=== PATIENT | female | born 1980 | race Two or more races ===

== ENCOUNTER 2022-11-29 15:31 | Emergency (ER) | payer BC ==
[~2022-11-29] VITALS: Ht 154.9 cm; Wt 70.1 kg
[2022-11-29 16:33] VITALS: BP 158/92
[2022-11-29] MEDS ORDERED: NAPR-746 PO (17:43)
== END 2022-11-29 17:55 | disposition home or self-care (01) ==
LOC: ER 15:31
DX: S00.83XA Contusion of other part of head, initial encounter (principal); W22.8XXA Striking against or struck by other objects, initial encounter; Y93.E9 Activity, other interior property and clothing maintenance; Y92.89 Other specified places as the place of occurrence of the external cause; Y99.8 Other external cause status
CPT/HCPCS: 70450

== ENCOUNTER 2024-12-20 08:26 | Emergency (ER) | payer BC ==
[~2024-12-20] VITALS: Ht 154.9 cm; Wt 73.8 kg
[~2024-12-20 08:26] MED LIST: NAPR-746 PO
--- NOTE | 2024-12-20 08:53 | ED.PDOC ---
History of Present Illness HPI Comments 44-year-old female with a history of hypertension, and diabetes presents to the ED with a chief complaint of posterior neck pain with associated right shoulder radiation, decreased sleep, and minor headache. Patient states that she took Motrin/Tylenol for pain with no alleviating factors at this time, by a worsening factor of movement/laying down. Patient denies any recent trauma or injury, sick contact, or recent travel. Patient denies any nausea vomiting, diarrhea, abdominal pain, blurry vision, or any other associated modifiers, symptoms, or factors at this time. Denies fever, chills, night sweats Denies persistent nausea Denies vomiting Denies thunderclap headache Denies photophobia, phonophobia Denies head trauma around the time headache started Denies family history of brain issues persistent headaches Denies taking any blood thinner medication Denies vision/hearing changes Denies focal loss of strength/sensation or changes in speech Chief Complaint: Neck Pain Time Seen by MD: 08:48 Primary Care Provider: "I DON'T HIS NAME" Reviewed Notes: Nurses Notes, Medications, Allergies Allergies: Coded Allergies: NO KNOWN ALLERGIES (Unverified , 11/29/22) Home Meds Active Scripts Naproxen (Naproxen) 500 Mg Tab, 500 MG PO BID, #30 TAB Prov:ANGEL QUINONES 11/29/22 Information Source: Patient Mode of Arrival: Ambulatory Severity: Moderate Timing: Days Duration: Intermittent, Days Prehospital treatment: None Past Medical History PAST MEDICAL HISTORY: HTN Surgical History: Denies all surgeries STOCK CLIPPER History: Denies all STOCK CLIPPER Hx Family History Family History: Reviewed,noncontributory to illness Social History Smoker: Non-Smoker Alcohol: Denies ETOH Use Drugs: Denies Drug Use Lives In: Home Constitutional: denies: chills, diaphoresis, fatigue, fever, malaise, sweats, weakness, others EENTM: denies: blurred vision, double vision, ear bleeding, ear discharge, ear drainage, ear pain, ear ringing, eye pain, eye redness, hearing loss, mouth pain, mouth swelling, nasal discharge, nose bleeding, nose congestion, nose pain, photophobia, tearing, throat pain, throat swelling, voice changes, others Respiratory: denies: cough, hemoptysis, orthopnea, SOB at rest, shortness of breath, SOB with excertion, stridor, wheezing, others Cardiovascular: denies: chest pain, dizzy spells, diaphoresis, Dyspnea on exertion, edema, irregular heart beat, left arm pain, lightheadedness, palpitations, PND, syncope, others Gastrointestinal: denies: abdomen distended, abdominal pain, blood streaked bowels, constipated, diarrhea, dysphagia, difficulty swallowing, hematemesis, melena, nausea, poor appetite, poor fluid intake, rectal bleeding, rectal pain, vomiting, others Genitourinary: denies: abnormal vagina bleeding, burning, dyspareunia, dysuria, flank pain, frequency, hematuria, incontinence, pain, , vagina discharge, urgency, others Neurological: denies: dizziness, fainting, headache, left sided numbness, left sided weakness, numbness, paresthesia, pre-existing deficit, right sided numbness, right sided weakness, seizure, speech problems, tingling, tremors, weakness, others Musculoskeletal: reports: neck pain; denies: back pain, gout, joint pain, joint swelling, muscle pain, muscle stiffness, others Integumetry: denies: bruises, change in color, change in hair/nails, dryness, laceration, lesions, lumps, rash, wounds, others Allergic/Immunocompromised: denies: Difficulty Healing, Frequent Infections, Hives, Itching, others Hematologic/Lymphatic: denies: anemia, blood clots, easy bleeding, easy bru ising, swollen glands, others Endocrine: denies: excessive hunger, excessive sweating, excessive thirst, e xcessive urination, flushing, intolerance to cold, intolerance to heat, unexplained weight gain, unexplained weight loss, others Psychiatric: denies: anxiety, bipolar disorder, depression, hopeless, panic disorder, schizophrenia, sleepless, suicidal, others All Other Systems: Reviewed and Negative Physical Exam General Appearance: Mild Distress, Normal HEENT: Normal ENT Inspection, Pharynx Normal, TMs Normal Neck: Normal, Normal Inspection, Other (Posterior neck pain, no gross abnormality, TTP, full ROM, Neuro vascular sensitivity intact, ) Respiratory: Chest Non-Tender, Lungs Clear, No Accessory Muscle Use, No Respi ratory Distress, Normal Breath Sounds Cardiovascular: No Edema, No JVD, No Murmur, No Gallop, Normal Peripheral Pulses, Regular Rate/Rhythm Breast Exam: Deferred Gastrointestinal: No Organomegaly, Non Tender, No Pulsatile Mass, Normal Bowel Sounds, Soft Genitalia: Deferred Pelvic: Deferred Rectal: Deferred Extremities: No calf tenderness, Normal capillary refill, Normal inspection, Normal range of motion, Non-tender, No pedal edema Musculoskeletal : Apperance: Normal Neurologic: Alert, silk screener II-XII nml as Tested, No Motor Deficits, Normal Affect, Normal Mood, No Sensory Deficits Cerebellar Function: Normal Reflexes: Normal Skin: Dry, Normal Color, Warm Lymphatic: No Adenopathy Was a procedure done? Was a procedure done?: No X-Ray, Labs, Meds, VS Vital Signs Date Time Temp Pulse Resp B/P (MAP) Pulse Ox O2 Delivery O2 Flow Rate FiO2 12/20/24 09:46 98.7 83 19 181/98 (125) 97 98.7 12/20/24 09:46 83 18 97 Room Air 12/20/24 08:35 98.8 84 16 183/93 (123) 97 98.8 Lab Test 12/20/24 09:20 Range/Units White Blood Count 10.7 4.4-10.8 10^3/uL Red Blood Count 5.05 4.0-5.20 10^6/uL Hemoglobin 12.0 L 12.2-16.2 g/dL Hematocrit 36.0 36.0-46.0 % Mean Corpuscular Volume 71.2 L 80.0-100.0 fL Mean Corpuscular Hemoglobin 23.7 L 28.0-32.0 pg Mean Corpuscular Hemoglobin Concent 33.3 32.0-36.0 g/dL Red Cell Distribution Width 14.0 11.8-14.3 % Platelet Count 280 140-450 10^3/uL Mean Platelet Volume 9.1 6.9-10.8 fL Neutrophils (%) (Auto) 61.5 37.0-80.0 % Lymphocytes (%) (Auto) 26.8 10.0-50.0 % Monocytes (%) (Auto) 7.8 0.0-12.0 % Eosinophils (%) (Auto) 3.5 0.0-7.0 % Basophils (%) (Auto) 0.4 0.0-2.0 % Neutrophils # (Auto) 6.6 1.6-8.6 10 ^3/uL Lymphocytes # (Auto) 2.9 0.4-5.4 10 ^3/uL Monocytes # (Auto) 0.8 0-1.3 10 ^3/uL Eosinophils # (Auto) 0.4 0-0.8 10 ^3/uL Basophils # (Auto) 0 0-0.2 10 ^3/uL Nucleated Red Blood Cells 0.2 % Sodium Level 138 136-145 mmol/L Potassium Level 4.2 3.5-5.1 mmol/L Chloride Level 104 98-107 mmol/L Carbon Dioxide Level 27 20-31 mmol/L Anion Gap 7 5-15 Blood Urea Nitrogen 17 9-23 mg/dL Creatinine 0.86 0.550-1.02 mg/dL Glomerular Filtration Rate Calc 85 >90 mL/min BUN/Creatinine Ratio 19.8 10.0-20.0 Serum Glucose 254 H 74-106 mg/dL Calcium Level 10.0 8.7-10.4 mg/dL Current Medications Medications (Trade) Dose Ordered Sig/Kayce Route Start Time Stop Time Status Last Admin Methylprednisolone Sodium Succinate (Solu Medrol) 125 mg ONCE ONCE IM 12/20/24 09:15 12/20/24 09:16 DC 12/20/24 09:45 Ketorolac Tromethamine (Toradol Injection) 60 mg ONCE ONCE IM 12/20/24 09:15 12/20/24 09:16 DC 12/20/24 09:46 X-Ray, Labs, Meds, VS Comment 44-year-old female with a history of hypertension presents to the ED with a chief complaint of posterior neck pain with associated right shoulder radiation, decreased sleep, and minor headache. Patient arrives alert and oriented, ABC's intact, afebrile, vital signs stable, saturating well in room air CBC was ordered to exclude anemia, blood loss, or infection. BMP was ordered to exclude electrolyte abnormalities, renal failure, dehydration, hyperglycemia Urinalysis was ordered to rule out UTI or hematuria. Diagnostic imaging ordered by me and results interpreted by radiology : Labs in the ED showed (pertinent+ and then pertinent-) Patient was given: 60 mg of Toradol IM, 125 mg of Solumedrol IM _. Tolerated medications with no adverse reaction. On reevaluation, patient had symptomatic improvement. Patient is stable for discharge at this time. External notes reviewed. Test results and diagnostic imaging interpreted. All diagnostic findings, discharge care, education and instructions provided Follow-up with PCP in 2 to 3 days Patient verbalized understanding and agreed to treatment plan Vital signs stable, afebrile, no acute distress noted Patient ambulatory with strong steady gait Advised to return precautions for any new or worsening symptoms, return to ER immediately for re-evaluation Patient is aware that the purpose of this visit was for an acute medical e mergency requiring emergent stabilization. Chronic conditions, including malignancies have not been ruled out. Patient is instructed to follow up with PCP as directed and discharge instructions for continued care and workup. If unable to arrange follow-up, patient is to return to the emergency department for reassessment. Patient (parent or legal guardian if applicable) was given verbal and written discharge instructions and acknowledges understanding. Additional MDM Review of External, Non-ED records: External records reviewed. Discussion with independent historian (EMS, family) history obtained from the patient/parents (if applicable) at bedside Chronic conditions affecting care: None Social determinants of health affecting care: None Time of 1ST Reevaluation: 09:18 Reevaluation 1ST: Unchanged Patient Education/Counseling: Diagnosis, Treatment, Need For Follow Up Family Education/Counseling: No Family Present SEPSIS Sepsis Screen Date sepsis recognized/suspect: Dec 20, 2024 Time Sepsis recognized/suspect: 829 Recent Procedure: No On Antibiotic Therapy: No Respiratory Rate >20: No Heart Rate >90: No Temp<36 C (96.8 F) or >38.3 C: No SBP <90 or MAP <65 mmHG: No New Acute Mental Status Change: No Is the patient on CPAP, BIPAP,: No Physician Orders Urinalysis (12/20/24 09:11) Vital Signs Date Time Temp Pulse Resp B/P (MAP) Pulse Ox O2 Delivery O2 Flow Rate FiO2 12/20/24 09:46 98.7 83 19 181/98 (125) 97 98.7 12/20/24 09:46 83 18 97 Room Air 12/20/24 08:35 98.8 84 16 183/93 (123) 97 98.8 Laboratory Tests Test 12/20/24 09:20 White Blood Count 10.7 10^3/uL (4.4-10.8) Medications Medications Dose Ordered Sig/Kayce Route Start Time Stop Time Status Last Admin Dose Admin Ketorolac Tromethamine 60 mg ONCE ONCE IM 12/20/24 09:15 12/20/24 09:16 DC 12/20/24 09:46 Methylprednisolone Sodium Succinate 125 mg ONCE ONCE IM 12/20/24 09:15 12/20/24 09:16 DC 12/20/24 09:45 Departure 1 Departure Time of Disposition: 10:08 Impression: Primary Impression: Cervical radiculopathy Disposition: HOME / SELF CARE / HOMELESS e-Prescriptions Methylprednisolone (Medrol Dosepak) 4 Mg Esvin 4 MG PO UD for 7 Days, #21 TAB 0 Refills UAD Prov: ERIK SAMSON NP 12/20/24 Naproxen (Naproxen) 500 Mg Tab 500 MG PO BIDPC for 10 Days, #20 TAB 0 Refills Prov: ERIK SAMSON NP 12/20/24 Critical Care Note Critical Care Time?: No Stability Stability form required: No Heart Score Heart Score: Heart Score Response (Comments) Value History N/A 0 EKG N/A 0 Age N/A 0 Risk Factors N/A 0 Troponin N/A 0 Total 0 I personally scribed for ERIK ASMSON BILLET BED OPERATOR ([email or web address]) on 12/20/24 at 08:53. Electronically submitted by Jordan Dangelo ([email or web address]). I personally scribed for ERIK SAMSON NP ([email or web address]) on 12/20/24 at 09:21. Electronically submitted by Jordan Dangelo ([email or web address]). ERIK SAMSON BILLET BED OPERATOR Dec 20, 2024 08:53
[2024-12-20 09:32] LABS: Hematocrit 36.0 % (36.0-46.0); Hemoglobin 12.0 g/dL (12.2-16.2); Mean Corpuscular Hemoglobin 23.7 pg (28.0-32.0); Mean Corpuscular Volume 71.2 fL (80.0-100.0); Nucleated Red Blood Cells % 0.2 %
[2024-12-20 09:45] LABS: Chloride 104 mmol/L (98-107); Potassium 4.2 mmol/L (3.5-5.1); Sodium 138 mmol/L (136-145)
[2024-12-20] MEDS: methylPREDNISolone SOD SUCC 125 MG/2 ML VL IM ONE (09:45)
[2024-12-20 09:46] VITALS: BP 181/98; PULSE 83; RESP 18; TEMP 98.7; O2SAT 97
[2024-12-20 09:46] LABS: Anion Gap 7 (5-15); Calcium 10.0 mg/dL (8.7-10.4); Carbon Dioxide 27 mmol/L (20-31)
[2024-12-20] MEDS: KETOROLAC TROMETH 60MG/2ML VIAL IM ONE (09:46)
[2024-12-20 09:51] LABS: BUN/Creatinine Ratio 19.8 (10.0-20.0); Blood Urea Nitrogen 17 mg/dL (9-23)
[2024-12-20 09:53] LABS: Glucose 254 mg/dL (74-106)
[2024-12-20] MEDS ORDERED: NAPR-746 PO (10:13)
[2024-12-20] MEDS ORDERED: METH4PAK PO (10:13)
[2024-12-20 10:48] LABS: Urine Protein, UAD 2+ (Negative)
== END 2024-12-20 10:42 | disposition home or self-care (01) ==
LOC: ER 08:26
DX: M54.12 Radiculopathy, cervical region (principal); I10 Essential (primary) hypertension
CPT/HCPCS: 36415; 80048; 81001; 85025; 96372; 99284; J1885; J2919